=== PATIENT | male | born 1950 | race Caucasian/White ===

== ENCOUNTER 2018-10-30 12:26 | Inpatient (IN) | payer OTHER ==
--- NOTE | 2018-10-30 13:20 | RAD REPORT ---
EXAM DESCRIPTION: CT - CTHCSPWOC - 10/30/2018 1:09 pm CLINICAL HISTORY: Trauma, head and neck injury. WEAKNESS COMPARISON: No comparisons TECHNIQUE: Axial 5 mm thick images of the head were obtained. Axial 2 mm thick images of the cervical spine were obtained with sagittal and coronal reconstruction images generated and reviewed. All CT scans are performed using dose optimization technique as appropriate and may include automated exposure control or mA/KV adjustment according to patient size. FINDINGS: CT HEAD WITHOUT CONTRAST: No acute hemorrhage, hydrocephalus or extra-axial collection is identified.Advanced generalized brain atrophy is present with moderate periventricular and deep white matter chronic microvascular ischemi c changes.No areas of brain edema or midline shift. The paranasal sinuses and mastoids are clear.The calvarium is intact. CT CERVICAL SPINE WITHOUT CONTRAST: No fracture or subluxation.Disc thinning with posterior osteophyte formation is seen lower cervical l evels.No prevertebral soft tissues swelling is identified. IMPRESSION: No acute intracranial or cervical spine findings. Moderate lower cervical spondylosis.
[2018-10-30 14:15] LABS: Urine Blood 3+ (NEG); Urine Glucose NEGATIVE (NEG); Urine Protein 2+ (NEG); Urine Specific Gravity 1.025 (1.005-1.030)
[2018-10-30 14:25] LABS: Urine RBC 20-50 /HPF (NONE SEEN)
[2018-10-30 14:26] LABS: Urine Bacteria >50 /HPF (NONE SEEN); Urine Culture Reflex Order NOT NEEDED
--- NOTE | 2018-10-30 14:28 | RAD REPORT ---
EXAM DESCRIPTION: RAD - Chest Single View - 10/30/2018 2:22 pm CLINICAL HISTORY: AMS Chest pain. COMPARISON: No comparisons FINDINGS: Portable technique limits examination quality. The lungs are grossly clear. The heart is normal in size. No displaced fractures. IMPRESSION: No acute intrathoracic process suspected.
[2018-10-30 14:39] LABS: Absolute Lymphocytes (CBC) 2.1 K/uL (0.7-4.9); Absolute Monocytes 1.3 K/uL (0.1-1.3); Absolute Neutrophil 13.8 K/uL (1.8-8.0); Basophils % 0.1 % (0-1.3); Hematocrit 37.9 % (39.6-49.0); Lymphocytes % 12.3 % (15.3-44.8); MPV 9.8 fL (7.6-11.3); Monocytes % 7.4 % (3.3-12.3); RBC Red Blood Cell Count 4.14 M/uL (4.33-5.43)
[2018-10-30] MEDS ORDERED: NA CHLORIDE 0.9% 1,000 ML ONE ×2 (14:42→15:30)
[2018-10-30 14:48] LABS: Potassium 3.4 mmol/L (3.5-5.1)
--- NOTE | 2018-10-30 15:15 | ER ---
Nurse's Notes [facility] Name: José Manuel Vega Age: 67 yrs Sex: Male : 1950 Arrival Date: 10/30/2018 Time: 12:31 Bed 25 Private MD: Diagnosis: Acute kidney failure;Dehydration;Urinary tract infection, site not specified Presentation: 10/30 12:34 Presenting complaint: Pt's sister states "he's been having frequent falls and has to aa5 hold on to something when walking for the last 2 months". Pt's sister also states "he has to walk bending over and I don't know why". Transition of care: patient was not received from another setting of care. Onset of symptoms was 2018. Risk Assessment: Do you want to hurt yourself or someone else? Unable to obtain. Care prior to arrival: None. 12:34 Method Of Arrival: Wheelchair aa5 12:34 Acuity: GABY 3 aa5 14:45 Initial Sepsis Screen: Does the patient meet any 2 criteria? Systolic BP < 90 mmHg. ca1 Altered Mental Status. Does the patient have a suspected source of infection? Yes: Dysuria/Frequency/Urgency/UTI. Historical: - Allergies: 12:38 No Known Allergies; aa5 - Home Meds: 12:38 Flomax Oral [Active]; Zoloft Oral [Active]; Metformin Oral [Active]; aa5 - PMHx: 12:38 Hypertension; Hyperlipidemia; Diabetes - NIDDM; Alzheimers; aa5 - PSHx: 12:38 arm sx; aa5 - Immunization history:: Flu vaccine is up to date. - Social history:: Smoking status: Patient/guardian denies using tobacco. - Ebola Screening: : No symptoms or risks identified at this time. Screenin:00 Abuse screen: Denies threats or abuse. Denies injuries from another. Nutritional ca1 screening: No deficits noted. Tuberculosis screening: No symptoms or risk factors identified. Fall Risk Fall in past 12 months (25 points). Secondary diagnosis (15 points) dementia, IV access (20 points). Gait- Weak (10 pts.). Assessment: 13:00 General: Appears in no apparent distress. comfortable, Behavior is calm, cooperative. ca1 General: Reports sister reports weakness for 2 days. Used to ambulate and move around house without assistance. In the past 2 days, pt appeared weak and needed assistance to move around. Pain: Denies pain. 13:00 Neuro: Level of Consciousness is awake, alert, obeys commands, Oriented to person, Pt ca1 has dementia and MRGary . Associate Account Executive are equal bilaterally Moves all extremities. Gait is unsteady, Speech is normal, Facial symmetry appears normal, Pupils are PERRLA, Sister reports changes in mental status from baseline. . 13:00 Cardiovascular: Heart tones S1 S2 present Capillary refill < 3 seconds Patient's skin ca1 is warm and dry. Respiratory: Airway is patent Respiratory effort is even, unlabored, Respiratory pattern is regular, symmetrical, Breath sounds are clear bilaterally. GI: Abdomen is flat, non-distended, Bowel sounds present X 4 quads. Abd is soft and non tender X 4 quads. : Parent/caregiver report the patient having foul smelling urine. EENT: No deficits noted. No signs and/or symptoms were reported regarding the EENT system. EENT:. Derm: Skin is intact, Skin is pink, warm \\T\\ dry. Musculoskeletal: Circulation, motion, and sensation intact. Capillary refill < 3 seconds. 13:30 Reassessment: PILI Fraser VO change Donnelly to Straight Cath. ca1 14:00 Reassessment: Patient appears in no apparent distress at this time. Patient and/or ca1 family updated on plan of care and expected duration. Pain level reassessed. Patient is alert, oriented x 3, equal unlabored respirations, skin warm/dry/pink. family at bedside. 15:00 Reassessment: Patient appears in no apparent distress at this time. Patient and/or ca1 family updated on plan of care and expected duration. Pain level reassessed. Patient is alert, oriented x 3, equal unlabored respirations, skin warm/dry/pink. Pending room assignment. 15:20 Reassessment: Patient appears in no apparent distress at this time. Patient is alert, ca1 oriented x 3, equal unlabored respirations, skin warm/dry/pink. Pt eating sandwich and juice with assistance by sister. Sister reports he needs assistance to finish meal, "minds tend to wander" and not finish his food. 15:40 Reassessment: Instructed pt and family on NPO status. ca1 16:29 Reassessment: Patient appears in no apparent distress at this time. Patient is alert, ca1 oriented x 3, equal unlabored respirations, skin warm/dry/pink. Called for report. Instructed to call back in 15 minutes. 16:47 Reassessment: Patient appears in no apparent distress at this time. Patient is alert, ca1 oriented x 3, equal unlabored respirations, skin warm/dry/pink. Vital Signs: 12:38 BP 102 / 62; Pulse 113; Resp 16 S; Temp 98.6(TE); Pulse Ox 96% on R/A; aa5 13:00 BP 104 / 60; Pulse 77; Resp 19; Pulse Ox 98% on R/A; ca1 13:30 BP 117 / 86; Pulse 98; Resp 18; Pulse Ox 97% on R/A; ca1 14:00 BP 105 / 79; Pulse 92; Resp 18; Pulse Ox 99% on R/A; ca1 14:30 BP 89 / 57; Pulse 87; Resp 18; Pulse Ox 99% on R/A; ca1 15:17 BP 113 / 98; Pulse 82; Resp 19; Pulse Ox 97% on R/A; ca1 15:30 BP 122 / 66; Pulse 64; Resp 19; Pulse Ox 100% on R/A; ca1 15:50 BP 115 / 89; Pulse 90; Resp 19; Pulse Ox 98% on R/A; ca1 16:30 BP 128 / 66; Pulse 66; Resp 19; Pulse Ox 98% on R/A; ca1 16:47 BP 114 / 62; Pulse 99; Resp 19; Temp 98.4; Pulse Ox 99% on R/A; ca1 ED Course: 12:31 Patient arrived in ED. aa5 12:34 Arm band placed on. aa5 12:36 Triage completed. aa5 12:50 Patient placed in an exam room, on a stretcher. aa5 12:52 Shea Stephens, RN is Primary Nurse. ca1 13:00 Patient has correct armband on for positive identification. Placed in gown. Bed in low ca1 position. Call light in reach. Side rails up X2. Pulse ox on. NIBP on. Warm blanket given. 13:04 Evelio Cartagena PA is PHCP. jr8 13:04 Ham Pérez MD is Attending Physician. jr8 13:10 CT Head C Spine In Process Unspecified. EDMS 13:57 Straight cath inserted, using sterile technique, 16 Fr. Returned mike urine. Patient mw1 tolerated well. 13:58 EKG done, by oracle technical architect. reviewed by Evelio ALEJANDRE. 3 13:59 Urine Dipstick--Ancillary (enter results) Sent. mw1 14:20 Inserted saline lock: 22 gauge in left antecubital area, using aseptic technique. Blood ca1 collected. 14:23 XRAY Chest (1 view) In Process Unspecified. EDMS 15:14 Daniela Hathaway MD is Hospitalizing Provider. jr8 16:53 No provider procedures requiring assistance completed. Patient admitted, IV remains in ca1 place. Administered Medications: 14:34 Drug: NS 0.9% 1000 ml Route: IV; Rate: 1 bolus; Site: left antecubital; ca1 15:25 Follow up: Response: No adverse reaction; IV Status: Completed infusion ca1 15:00 Drug: Rocephin - (cefTRIAXone) 1 grams Route: IVPB; Infused Over: 30 mins; Site: left ca1 antecubital; 15:48 Follow up: IV Status: IVP per pharmacy protocol ca1 15:49 Follow up: Response: No adverse reaction ca1 15:16 Drug: NS 0.9% 1000 ml Route: IV; Rate: 100 ml/hr; Site: left antecubital; ca1 15:49 Follow up: IV Status: Infusion continued upon admission ca1 Point of Care Testing: Blood Glucose: 13:29 Blood Glucose: 125 mg/dL; ca1 Ranges: Outcome: 15:14 Decision to Hospitalize by Provider. jr8 16:53 Admitted to Tele accompanied by tech, family with patient, via wheelchair, room 403, ca1 with chart, Report called to Bobby Jackson RN 16:54 Condition: stable ca1 17:08 Patient left the ED. ca1 Signatures: Dispatcher [employer] EDMS Nhi Zhou RN RN aa5 Evleio Cartagena PA PA jr8 Iglesia Toussaint mw1 Nevin Andersen 3 Shea Stephens RN RN ca1 Corrections: (The following items were deleted from the chart) 12:45 12:34 Initial Sepsis Screen: Does the patient meet any 2 criteria? No. Patient's aa5 initial sepsis screen is negative. Does the patient have a suspected source of infection? No. Patient's initial sepsis screen is negative. aa5 12:48 12:38 BP 90 / 63; Pulse 113bpm; Resp 16bpm; Spontaneous; Pulse Ox 96% RA; Temp 98.6F aa5 Temporal; aa5 15:41 13:00 General: Reports sister reports weakness for 2 days. Used to ambulate and move ca1 around house without assistance. ca1 15:47 13:00 Neuro: Level of Consciousness is awake, alert, obeys commands, Oriented to ca1 person, Pt has dementia and MR. . Associate Account Executive are equal bilaterally Moves all extremities. Gait is unsteady, Speech is normal, Facial symmetry appears normal, Pupils are PERRLA, ca1 15:50 15:26 Reassessment: PILI Fraser VO change Donnelly to Straight Cath. ca1 ca1 16:30 15:50 Reassessment: Patient appears in no apparent distress at this time. Patient is ca1 alert, oriented x 3, equal unlabored respirations, skin warm/dry/pink. Pt eating sandwich and juice with assistance by sister. Sister reports he needs assistance to finish meal, "minds tend to wander" and not finish his food ca1 18:57 12:50 Nhi Zhou, RN is Primary Nurse. aa5 aa5 18:57 12:52 Primary Nurse role handed off by Nhi Zhou, RN ca1 aa5
--- NOTE | 2018-10-30 15:15 | EDPHYS ---
Physician Documentation [facility] Name: José Manuel Vega Age: 67 yrs Sex: Male : 1950 Arrival Date: 10/30/2018 Time: 12:31 Bed 25 Private MD: ED Physician Ham Pérez HPI: 10/30 15:09 This 67 yrs old Male presents to ER via Wheelchair with complaints of General jr8 Weakness. 15:09 Significant other brought patient in today for unsteady gait. Stated that he is more jr8 weak then normal and feels that he is not acting himself. Baseline history of Alzheimer's and MR. . Severity of symptoms: At their worst the symptoms were moderate in the emergency department the symptoms are unchanged. It is unknown whether or not the patient has had similar symptoms in the past. The patient has not recently seen a physician. Historical: - Allergies: 12:38 No Known Allergies; aa5 - Home Meds: 12:38 Flomax Oral [Active]; Zoloft Oral [Active]; Metformin Oral [Active]; aa5 - PMHx: 12:38 Hypertension; Hyperlipidemia; Diabetes - NIDDM; Alzheimers; aa5 - PSHx: 12:38 arm sx; aa5 - Immunization history:: Flu vaccine is up to date. - Social history:: Smoking status: Patient/guardian denies using tobacco. - Ebola Screening: : No symptoms or risks identified at this time. ROS: 15:09 Unable to obtain ROS due to baseline dementia. jr8 Exam: 15:09 Eyes: Pupils equal round and reactive to light, extra-ocular motions intact. Lids and jr8 lashes normal. Conjunctiva and sclera are non-icteric and not injected. Cornea within normal limits. Periorbital areas with no swelling, redness, or edema. ENT: Nares patent. No nasal discharge, no septal abnormalities noted. Tympanic membranes are normal and external auditory canals are clear. Oropharynx with no redness, swelling, or masses, exudates, or evidence of obstruction, uvula midline. Mucous membranes moist. Neck: Trachea midline, no thyromegaly or masses palpated, and no cervical lymphadenopathy. Supple, full range of motion without nuchal rigidity, or vertebral point tenderness. No Meningismus. Cardiovascular: Regular rate and rhythm with a normal S1 and S2. No gallops, murmurs, or rubs. Normal PMI, no JVD. No pulse deficits. Respiratory: Lungs have equal breath sounds bilaterally, clear to auscultation and percussion. No rales, rhonchi or wheezes noted. No increased work of breathing, no retractions or nasal flaring. Abdomen/GI: Soft, non-tender, with normal bowel sounds. No distension or tympany. No guarding or rebound. No evidence of tenderness throughout. Back: No spinal tenderness. No costovertebral tenderness. Full range of motion. Skin: Warm, dry with normal turgor. Normal color with no rashes, no lesions, and no evidence of cellulitis. MS/ Extremity: Pulses equal, no cyanosis. Neurovascular intact. Full, normal range of motion. 15:09 Neuro: Orientation: to person, Mentation: inappropriate for stated age, slow to respond, confused, Memory: immediate memory is intact, remote memory is impaired, recent memory is impaired, Cranial nerves: CN I not tested, CN II- XII are normal as tested, extraocular movements are intact, Facial palsy and sensory deficits are absent. Speech is slowed, Tongue strength is normal, Cerebellar function: unable to test, Motor: moves all fours, Sensation: no obvious gross deficits, seizure activity, is not displayed by the patient, Abnormal movements: there are no abnormal movements. 15:58 ECG was reviewed by the Attending Physician. jr8 Vital Signs: 12:38 BP 102 / 62; Pulse 113; Resp 16 S; Temp 98.6(TE); Pulse Ox 96% on R/A; aa5 13:00 BP 104 / 60; Pulse 77; Resp 19; Pulse Ox 98% on R/A; ca1 13:30 BP 117 / 86; Pulse 98; Resp 18; Pulse Ox 97% on R/A; ca1 14:00 BP 105 / 79; Pulse 92; Resp 18; Pulse Ox 99% on R/A; ca1 14:30 BP 89 / 57; Pulse 87; Resp 18; Pulse Ox 99% on R/A; ca1 15:17 BP 113 / 98; Pulse 82; Resp 19; Pulse Ox 97% on R/A; ca1 15:30 BP 122 / 66; Pulse 64; Resp 19; Pulse Ox 100% on R/A; ca1 15:50 BP 115 / 89; Pulse 90; Resp 19; Pulse Ox 98% on R/A; ca1 16:30 BP 128 / 66; Pulse 66; Resp 19; Pulse Ox 98% on R/A; ca1 16:47 BP 114 / 62; Pulse 99; Resp 19; Temp 98.4; Pulse Ox 99% on R/A; ca1 MDM: 13:04 Patient medically screened. jr 15:09 Data reviewed: vital signs, nurses notes, lab test result(s), EKG, radiologic studies, jr CT scan, plain films, and as a result, I will admit patient. Data interpreted: Pulse oximetry: on room air is 99 %. Interpretation: normal. Counseling: I had a detailed discussion with the patient and/or guardian regarding: the historical points, exam findings, and any diagnostic results supporting the discharge/admit diagnosis, lab results, radiology results, the need for further work-up and treatment in the hospital. 15:14 Physician consultation: Daniela Hathaway MD was called at 15:14, was contacted at 15:14, jr8 regarding admission, to the telemetry unit. consult, patient's condition, and will see patient. 10/30 12:52 Order name: Urine Culture aa5 10/30 12:52 Order name: Urine Microscopic Only; Complete Time: 14:55 aa5 10/30 13:28 Order name: Glucose, Ancillary Testing; Complete Time: 13:36 EDMS 10/30 13:36 Order name: CBC with Diff; Complete Time: 15:12 jr8 10/30 13:36 Order name: Basic Metabolic Panel; Complete Time: 14:55 jr8 10/30 13:56 Order name: Urine Dipstick--Ancillary (enter results); Complete Time: 14:20 bd 10/30 15:41 Order name: CBC with Automated Diff EDMS 10/30 15:41 Order name: CBC with Automated Diff EDMS 10/30 15:41 Order name: CBC with Automated Diff EDMS 10/30 15:41 Order name: CBC with Automated Diff EDMS 10/30 15:41 Order name: Comprehensive Metabolic Panel EDMS 10/30 15:41 Order name: Comprehensive Metabolic Panel EDMS 10/30 15:41 Order name: Comprehensive Metabolic Panel EDMS 10/30 15:41 Order name: Comprehensive Metabolic Panel EDMS 10/30 12:52 Order name: CT Head C Spine; Complete Time: 13:36 aa5 10/30 12:52 Order name: Urine Dipstick-Ancillary (obtain specimen); Complete Time: 13:59 aa5 10/30 12:52 Order name: Donnelly; Complete Time: 13:59 aa5 10/30 12:53 Order name: FSBS; Complete Time: 13:59 aa5 10/30 13:36 Order name: EKG - Nurse/Tech; Complete Time: 13:59 jr8 10/30 13:36 Order name: EKG; Complete Time: 13:37 jr8 10/30 13:37 Order name: XRAY Chest (1 view); Complete Time: 14:55 jr8 10/30 15:41 Order name: NPO EDMS 10/30 15:41 Order name: Magnesium EDMS 10/30 15:41 Order name: Magnesium EDMS 10/30 15:41 Order name: Phosphorus EDMS 10/30 15:41 Order name: Phosphorus EDMS 10/30 15:41 Order name: Patient Safety Orders EDMS 10/30 15:26 Order name: Straight Cath; Complete Time: 15:26 ca1 EC:58 Rate is 92 beats/min. Rhythm is irregular, Sinus arrythmia. QRS [place] is Normal. VA jr8 interval is normal at 124 msec. QRS interval is normal at 86 msec. QT interval is normal at 435 msec. No Q waves. T waves are Normal. No ST changes noted. Clinical impression: Sinus arrythmia. Interpreted by me. Reviewed by me. Administered Medications: 14:34 Drug: NS 0.9% 1000 ml Route: IV; Rate: 1 bolus; Site: left antecubital; ca1 15:25 Follow up: Response: No adverse reaction; IV Status: Completed infusion ca1 15:00 Drug: Rocephin - (cefTRIAXone) 1 grams Route: IVPB; Infused Over: 30 mins; Site: left ca1 antecubital; 15:48 Follow up: IV Status: IVP per pharmacy protocol ca1 15:49 Follow up: Response: No adverse reaction ca1 15:16 Drug: NS 0.9% 1000 ml Route: IV; Rate: 100 ml/hr; Site: left antecubital; ca1 15:49 Follow up: IV Status: Infusion continued upon admission ca1 Point of Care Testing: Blood Glucose: 13:29 Blood Glucose: 125 mg/dL; ca1 Ranges: Critical Glucose Levels:Adult <50 mg/dl or >400 mg/dl <40 mg/dl or >180 mg/dl Disposition: 17:20 Co-signature as Attending Physician, Ham Pérez MD. rn Disposition: 10/30/18 15:14 Hospitalization ordered by Daniela Hathaway for Inpatient Admission. Preliminary diagnosis are Acute kidney failure, Dehydration, Urinary tract infection, site not specified. - Bed requested for Telemetry/MedSurg (Inpatient). - Status is Inpatient Admission. ca1 - Condition is Stable. - Problem is new. - Symptoms have improved. UTI on Admission? Yes Signatures: Dispatcher [employer] EDMS Zaynab Peña Ham Rodriguez MD MD rn Abelardo, Nhi RN RN aa5 Evelio Cartagena PA PA jr8 Shea Stephens RN RN ca1 Corrections: (The following items were deleted from the chart) 16:10 15:09 Neuro: Orientation: to person, Mentation: inappropriate for stated age, slow to jr8 respond, confused, Memory: immediate memory is intact, remote memory is impaired, recent memory is impaired, Cranial nerves: CN I not tested, CN II- XII are normal as tested, extraocular movements are intact, Facial palsy and sensory deficits are absent. Speech is slowed, Tongue strength is normal, Cerebellar function: unable to test, Motor: moves all fours, Sensation: no obvious gross deficits, seizure activity, is not displayed by the patient, Abnormal movements: there are no abnormal movements, jr8 16:13 15:14 Hospitalization Ordered by Daniela Hathaway MD for Inpatient Admission. Preliminary bd diagnosis is Acute kidney failure; Dehydration; Urinary tract infection, site not specified. Bed requested for Telemetry/MedSurg (Inpatient). Status is Inpatient Admission. Condition is Stable. Problem is new. Symptoms have improved. UTI on Admission? Yes. jr8 17:08 16:13 10/30/2018 15:14 Hospitalization Ordered by Daniela Hathaway MD for Inpatient ca1 Admission. Preliminary diagnosis is Acute kidney failure; Dehydration; Urinary tract infection, site not specified. Bed requested for Telemetry/MedSurg (Inpatient). Status is Inpatient Admission. Condition is Stable. Problem is new. Symptoms have improved. UTI on Admission? Yes. bd
[2018-10-30] MEDS ORDERED: CEFTRIAXONE/SWI 1gm 1 GM/10 ML SYR ONE (15:30)
[2018-10-30] MEDS ORDERED: ONDANSETRON 4 MG/2 ML VIAL IV PRN (15:34)
[2018-10-30] MEDS ORDERED: ACETAMINOPHEN 500 MG TAB PO PRN (15:34)
[2018-10-30] MEDS ORDERED: D50W 25 GM/50 ML SYRINGE IV PRN (15:48)
[2018-10-30] MEDS ORDERED: GLUCAGON 1 MG/VIAL IM PRN (15:48)
[2018-10-30] MEDS ORDERED: NA CHLORIDE 0.9% 1,000 ML IV SCH (16:00)
[2018-10-30] MEDS: INSULIN -REGULAR HUMAN 50 UNIT/0.5 ML ML SQ SCH ×2 (16:30→21:00)
[2018-10-30 18:10] VITALS: BMI 22.1
[2018-10-30] MEDS ORDERED: POTASSIUM CL SA 10 MEQ TAB PO ONE (22:46)
[2018-10-31] MEDS: NACHLORIDE 0.45% 1,000 ML IV SCH ×3 (00:39→20:15)
[2018-10-31 04:04] LABS: Absolute Lymphocytes (CBC) 1.6 K/uL (0.7-4.9); Absolute Monocytes 0.9 K/uL (0.1-1.3); Absolute Neutrophil 9.6 K/uL (1.8-8.0); Basophils % 0.2 % (0-1.3); Eosinophils % 0.4 % (0-4.4); Hematocrit 35.5 % (39.6-49.0); Lymphocytes % 13.3 % (15.3-44.8); MPV 9.8 fL (7.6-11.3); Monocytes % 7.3 % (3.3-12.3); RBC Red Blood Cell Count 3.92 M/uL (4.33-5.43)
[2018-10-31 04:20] LABS: Albumin 2.7 g/dL (3.4-5.0); Bilirubin Total 0.8 mg/dL (0.2-1.0); Magnesium 1.8 mg/dL (1.8-2.4); Phosphorus 2.4 mg/dL (2.5-4.9); Potassium 3.6 mmol/L (3.5-5.1); Protein, Total 6.9 g/dL (6.4-8.2); Uric Acid 6.6 mg/dL (3.5-7.2)
--- NOTE | 2018-10-31 05:43 | P.HP ---
Certification for Inpatient Patient admitted to: Inpatient With expected LOS: >2 Midnights Practitioner: I am a practitioner with admitting privileges, knowledge of patient current condition, hospital course, and medical plan of care. Services: Services provided to patient in accordance with Admission requirements found in Title 42 Section 412.3 of the Code of Federal Regulations Patient History Date of Service: 10/30/18 Reason for admission: acute encephalopathy, sepsis, UTI History of Present Illness: Mr Vega is a 67 years old male with history of HTN, DM II, Dementia, diabetes mellitus, who become more confused and lethargic. His symptoms started yesterday. No history of fever or chills. No cough or SOB. The patient is poor historian. According to his sister, he is going down hill since a couple of months. At arrival he was afebrile, hypotensive, and tachycardic. Lab work remarkable for leukocytosis, worsening renal function, UA abnormal consistent with UTI. CT head shows no acute abnormalities. Allergies morphine Allergy (Verified 01/29/13 16:45) Rash Home medications list reviewed: Yes Home Medications: Losartan/Hydrochlorothiazide [Losartan-Hctz 100-12.5 mg Tab] 1 each PO DAILY Metformin HCl 500 mg PO DAILY AT SUPPER 12/12/12 Sertraline [Zoloft*] 50 mg PO DAILY 12/12/12 Simvastatin [Zocor*] 20 mg PO BEDTIME 12/12/12 Aspirin 1 tab PO DAILY 10/30/18 Levothyroxine [Synthroid] 50 mcg PO [id number] 10/30/18 Tamsulosin [Flomax*] 1 tab PO BEDTIME 10/30/18 - Past Medical/Surgical History Diabetic: Yes -: Dementia -: mental retardation -: hypertension -: hyperlipidemia -: NIDDM -: Alzheimers -: arm sx - Family History Family History: Reviewed- Non-Contributory - Social History Smoking Status: Never smoker Alcohol use: No CD- Drugs: No Caffeine use: No Place of Residence: Home Review of Systems 10-point ROS is otherwise unremarkable Physical Examination - Vital Signs Temperature: 98.0 F Blood Pressure: 113/56 Pulse: 67 Respirations: 19 Pulse Ox (%): 97 - Physical Exam General: Alert, In no apparent distress, Demented, Confused HEENT: Atraumatic, PERRLA, Mucous membr. moist/pink, EOMI, Sclerae nonicteric Neck: Supple, 2+ carotid pulse no bruit, No LAD, Without JVD or thyroid abnormality Respiratory: Clear to auscultation bilaterally, Normal air movement Cardiovascular: Regular rate/rhythm, Normal S1 S2 Gastrointestinal: Normal bowel sounds, No tenderness Musculoskeletal: No tenderness Integumentary: No rashes Neurological: Normal speech, Normal strength at 5/5 x4 extr, Normal tone, Normal affect Lymphatics: No axilla or inguinal lymphadenopathy - Studies Laboratory Data (last 24 hrs) 10/30/18 14:24: Sodium 146 H, Potassium 3.4 L, BUN 43 H, Creatinine 2.50 H, Glucose 118 H 10/30/18 14:24: WBC 17.2 H, Hgb 12.9 L, Hct 37.9 L, Plt Count 263 Assessment and Plan - Problems (Diagnosis) (1) Acute encephalopathy Current Visit: Yes Status: Acute (2) Sepsis associated hypotension Current Visit: Yes Status: Acute (3) UTI (urinary tract infection) Current Visit: Yes Status: Acute Qualifiers: Urinary tract infection type: acute cystitis Hematuria presence: without hematuria Qualified Code(s): N30.00 - Acute cystitis without hematuria (4) Diabetes mellitus Current Visit: Yes Status: Acute Qualifiers: Diabetes mellitus type: type 2 Diabetes mellitus watermelon harvesting supervisor insulin use: without snf use Diabetes mellitus complication status: with unspecified complications Qualified Code(s): E11.8 - Type 2 diabetes mellitus with unspecified complications (5) Dementia Current Visit: Yes Status: Acute Qualifiers: Dementia type: unspecified type Dementia behavioral disturbance: with behavioral disturbance Qualified Code(s): F03.91 - Unspecified dementia with behavioral disturbance - Plan will admit the patient due to acute encephalopathy in context of sepsis secondary to UTI. Continue empiric abx treatment, follow up cultures. - Advance Directives Does patient have a Living Will: No Does patient have a Durable POA for Healthcare: Yes - Code Status/Comfort Care Code Status Assessed: Yes Code Status: Full Code
[2018-10-31 06:00] LABS: Urine Appearance CLOUDY; Urine Blood 3+ (NEG); Urine Color DK YELLOW; Urine Glucose NEGATIVE (NEG); Urine Protein 1+ (NEG)
[2018-10-31 06:12] LABS: Urine Bilirubin NEGATIVE (NEG)
[2018-10-31 06:15] LABS: Urine Bacteria <20 /HPF (NONE SEEN); Urine Culture Reflex Order NOT NEEDED; Urine RBC 20-50 /HPF (NONE SEEN)
[2018-10-31 06:21] LABS: UR MICROALBUMIN 8.4 mg/dL (< 1.9)
[2018-10-31] MEDS: INSULIN -REGULAR HUMAN 50 UNIT/0.5 ML ML SQ SCH ×4 (07:30→20:22)
[2018-10-31] MEDS: CEFTRIAXONE/SWI 1gm 1 GM/10 ML SYR IVP SCH (08:43)
--- NOTE | 2018-10-31 18:36 | RAD REPORT ---
EXAM DESCRIPTION: US - Renal Ultrasound-Complete - 10/31/2018 6:09 pm CLINICAL HISTORY: JASON/ CKD. Flank pain, renal failure COMPARISON: Urinary Bladder dated 10/31/2018 FINDINGS: Bilateral renal sonography was performed with urinary bladder ultrasound with PVR measurem ent. Both kidneys are normal in size, shape and echotexture. The right kidney measures 10.1 x 5.4 x 5.0 cm. No hydronephrosis, focal mass or perinephric fluid. The left kidney measures 9.3 x 5.2 x 4.0 cm. No hydronephrosis, focal mass or perinephric fluid. No urinary bladder mass or ureterocele present. Postvoid bladder volume is 55 mL. IMPRESSION: Unremarkable renal sonogram. Mild postvoid bladder residual 55 mL.
--- NOTE | 2018-10-31 20:05 | PN ---
Date of Progress Note: 10/31/2018 Subjective: The patient was seen and examined, chart reviewed and case discussed with RN. The patient does have mild MR. Answers questions appropriately. Medications: List reviewed. Physical Examination: Vital Signs: Temperature 98.2, heart rate 57, blood pressure 111/61, respirations 16, O2 sat 98% on room air. General: Awake, alert, oriented, in no acute distress. Elderly male. CV: S1 and S2. Regular rate and rhythm. Peripheral pulses present. Respiratory: Moving air well bilaterally. No wheezing or stridor. Gastrointestinal: Abdomen is soft, nontender, nondistended. Positive bowel sounds. No guarding or rigidity. Extremities: No clubbing, cyanosis, or edema. Neurologic: Nonfocal. Skin: Normal skin turgor, no rashes. Code Status: Full. Laboratory Data: Sodium 147, potassium 3.6, chloride 112, CO2 28, BUN 36, creatinine 1.23, glucose 125, uric acid 6.6, calcium 8.6, phosphorus 2.4, albumin 2.7. WBC 12.2, H and H 12.2 and 35.5, platelets 250, neutrophils 78.8% . Urine culture growing out 4+ gram-negative rods. ID and sensitivity pending. Head CT scan shows no acute intracranial or cervical spine findings. Moderate lower cervical spondylosis. Chest x-ray, personally reviewed, shows no acute intrathoracic process identified. Assessment And Plan: A 67-year-old male with; 1. Acute toxic encephalopathy, resolved. 2. Sepsis associated hypotension, improving. Blood pressure is now in the 110s. The patient was given IV fluid resuscitation. 3. Acute cystitis without hematuria secondary to gram-negative rods. ID and sensitivity pending. We will continue with IV antibiotics. The patient's white count is trending down. Currently, afebrile. He seems to be responding well. 4. Diabetes mellitus type 2 without long-term use of insulin with hyperglycemia. We will continue sliding scale insulin and Accu-Cheks. 5. Mild mental retardation 6. 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 7. Gastrointestinal and deep venous thrombosis prophylaxis addressed. We will place on Lovenox. 8. Acute kidney injury resolved creatinine has normalized, likely secondary to sepsis and hypotension. 9. Hypokalemia replaced. 10. Hypophosphatemia. We will replace and monitor. Plan: Follow up on urine culture, ID and sensitivity, continue antibiotics. Likely discharge in the next 24-48 hours. /ANTOINETTE Voice ID: [id number] Report ID: [id number] MTDD
[2018-10-31] MEDS ORDERED: TAMSULOSIN 0.4 MG SR CAP PO SCH ×2 (21:00)
[2018-10-31] MEDS ORDERED: ATORVASTATIN 10 MG TAB PO SCH (21:00)
[2018-10-31 21:17] VITALS: O2SAT 98
--- NOTE | 2018-10-31 23:49 | P.CNS ---
Date of Consult: 10/30/18 Reason for Consult: JASON Requesting Physician: Daniela Hathaway Chief Complaint: acute encephalopathy, sepsis, UTI History of Present Illness: Mr Vega is a 67 years old male with history of HTN, DM II, Dementia, diabetes mellitus, who become more confused and lethargic. His symptoms started yesterday. No history of fever or chills. No cough or SOB. The patient is poor historian. According to his sister, he is going down hill since a couple of months. At arrival he was afebrile, hypotensive, and tachycardic. Lab work remarkable for leukocytosis, worsening renal function, UA abnormal consistent with UTI. CT head shows no acute abnormalities. 15:09 This 67 yrs old Male presents to ER via Wheelchair with complaints of General jr8 Weakness. 15:09 Significant other brought patient in today for unsteady gait. Stated that he is more jr8 weak then normal and feels that he is not acting himself. Baseline history of Alzheimer's and MR. . Severity of symptoms: At their worst the symptoms were moderate in the emergency department the symptoms are unchanged. It is unknown whether or not the patient has had similar symptoms in the past. The patient has not recently seen a physician. Allergies morphine Allergy (Verified 01/29/13 16:45) Rash Home medications list reviewed: Yes Home Medications: Losartan/Hydrochlorothiazide [Losartan-Hctz 100-12.5 mg Tab] 1 each PO DAILY Metformin HCl 500 mg PO DAILY AT SUPPER 12/12/12 Sertraline [Zoloft*] 50 mg PO DAILY 12/12/12 Simvastatin [Zocor*] 20 mg PO BEDTIME 12/12/12 Aspirin 1 tab PO DAILY 10/30/18 Levothyroxine [Synthroid*] 50 mcg PO [id number] 10/30/18 Tamsulosin [Flomax*] 1 tab PO BEDTIME 10/30/18 Cefuroxime Axetil [Cefuroxime] 500 mg PO BID #10 tab 11/01/18 Potassium Chloride 20 meq PO DAILY #3 tablet.er 11/01/18 - Past Medical/Surgical History Diabetic: Yes -: Dementia -: mental retardation -: hypertension -: hyperlipidemia -: NIDDM -: Alzheimers -: arm sx - Social History Smoking Status: Never smoker Alcohol use: No CD- Drugs: No Caffeine use: No Place of Residence: Home Review of Systems 10-point ROS is otherwise unremarkable General: Weakness, Malaise Neurological: Weakness Physical Examination Temp Pulse Resp BP Pulse Ox 98.0 F 57 20 108/47 L 98 10/31/18 20:00 10/31/18 20:00 10/31/18 20:00 10/31/18 20:00 10/31/18 20:00 General: In no apparent distress, Cooperative HEENT: Atraumatic, Normocephalic Neck: Supple Respiratory: Clear to auscultation bilaterally, Normal air movement Cardiovascular: No edema, Regular rate/rhythm Gastrointestinal: Hypoactive, Soft and benign, Non-distended Musculoskeletal: No clubbing, No contractures Integumentary: No rashes, No cyanosis Neurological: Abnormal affect Imagings Data: EXAM DESCRIPTION: US - Renal Ultrasound-Complete - 10/31/2018 6:09 pm CLINICAL HISTORY: JASON/ CKD. Flank pain, renal failure COMPARISON: Urinary Bladder dated 10/31/2018 FINDINGS: Bilateral renal sonography was performed with urinary bladder ultrasound with PVR measurement. Both kidneys are normal in size, shape and echotexture. The right kidney measures 10.1 x 5.4 x 5.0 cm. No hydronephrosis, focal mass or perinephric fluid. The left kidney measures 9.3 x 5.2 x 4.0 cm. No hydronephrosis, focal mass or perinephric fluid. No urinary bladder mass or ureterocele present. Postvoid bladder volume is 55 mL. IMPRESSION: Unremarkable renal sonogram. Mild postvoid bladder residual 55 mL. EXAM DESCRIPTION: RAD - Chest Single View - 10/30/2018 2:22 pm CLINICAL HISTORY: AMS Chest pain. COMPARISON: No comparisons FINDINGS: Portable technique limits examination quality. The lungs are grossly clear. The heart is normal in size. No displaced fractures. IMPRESSION: No acute intrathoracic process suspected. Conclusions/Impression: A/ JASON like due to hypovolemia. Dehydration. Hypernatremia. Hypokalemia. CKD III with proteinuria. DM II with CKD. HTN with CKD. Anemia in chronic illness. BPH with LUTS. Sepsis. Acute proteus cystitis. P/ Continue current POC and Medications. Agree with aggressive IVF. Replete lytes as ordered. Empiric abx for sepsis/ cystitis. Renal and Bladder US ordered. Restart home medications as indicated. No NSAIDS. AM labs. Daily weight. Thank you kindly for the consultation.
[2018-11-01] MEDS: NACHLORIDE 0.45% 1,000 ML IV SCH (05:18)
[2018-11-01 05:59] LABS: Absolute Lymphocytes (CBC) 2.8 K/uL (0.7-4.9); Absolute Monocytes 0.6 K/uL (0.1-1.3); Absolute Neutrophil 4.1 K/uL (1.8-8.0); Basophils % 0.6 % (0-1.3); Eosinophils % 2.6 % (0-4.4); Hematocrit 34.5 % (39.6-49.0); Lymphocytes % 36.2 % (15.3-44.8); MPV 9.8 fL (7.6-11.3); RBC Red Blood Cell Count 3.78 M/uL (4.33-5.43)
[2018-11-01] MEDS ORDERED: LEVOTHYROXINE SOD 0.05 MG TABLET PO SCH (06:00)
[2018-11-01 06:06] LABS: ALT/SGPT 50 U/L (12-78); AST/SGOT 29 U/L (15-37); Albumin 2.3 g/dL (3.4-5.0); Alkaline Phosphatase 87 U/L (45-117); BUN Blood Urea Nitrogen 20 mg/dL (7-18); Bicarbonate 30 mmol/L (21-32); Bilirubin Total 0.6 mg/dL (0.2-1.0); Glucose Level 95 mg/dL (74-106); Potassium 3.2 mmol/L (3.5-5.1); Protein, Total 6.1 g/dL (6.4-8.2); Sodium Level 142 mmol/L (136-145)
[2018-11-01] MEDS: INSULIN -REGULAR HUMAN 50 UNIT/0.5 ML ML SQ SCH ×2 (07:30→11:30)
[2018-11-01] MEDS: CEFTRIAXONE/SWI 1gm 1 GM/10 ML SYR IVP SCH (08:43)
[2018-11-01] MEDS ORDERED: ASPIRIN 81 MG CHEWABLE TABLET PO SCH (09:00)
[2018-11-01] MEDS ORDERED: SERTRALINE HCL 50 MG TAB PO SCH (09:00)
[2018-11-01] MEDS ORDERED: TAMSULOSIN 0.4 MG SR CAP PO SCH (09:00)
[2018-11-01] MEDS ORDERED: HOME MED 1 EA UNK (Losartan/Hydrochlorothiazide [Losartan-Hctz 100-12.5 Mg Tab] 1 EACH) PO SCH (09:00)
--- NOTE | 2018-11-01 10:15 | RAD REPORT ---
EXAM DESCRIPTION: US - Urinary Bladder - 10/31/2018 6:10 pm CLINICAL HISTORY: JASON/ CKD. Flank pain, renal failure COMPARISON: Urinary Bladder dated 10/31/2018 FINDINGS: Bilateral renal sonography was performed with urinary bladder ultrasound with PVR measurem ent. Both kidneys are normal in size, shape and echotexture. The right kidney measures 10.1 x 5.4 x 5.0 cm . No hydronephrosis, focal mass or perinephric fluid. The left kidney measures 9.3 x 5.2 x 4.0 cm . No hydronephrosis, focal mass or perinephric fluid. No urinary bladder mass or ureterocele present. Postvoid bladder volume is 55 mL. IMPRESSION: Unremarkable renal sonogram. Mild postvoid bladder residual 55 mL.
[2018-11-01 12:36] VITALS: BP 123/62; TEMP 97.9
--- NOTE | 2018-11-01 20:14 | P.PN ---
Date of Service: 10/31/18 Vital Signs Temp Pulse Resp BP Pulse Ox 97.9 F 71 18 123/62 90 L 11/01/18 12:00 11/01/18 12:00 11/01/18 12:00 11/01/18 12:00 11/01/18 12:00 Microbiology Results 10/30/18 13:43 Catheterized Urine [place] Count - Final >100,000 CFU/ML. 10/30/18 13:43 Catheterized Urine - Final Proteus Mirabilis Assessment/ Plan: Nephrology. Doing better today. CPS stable without CP or SOB. No acute events overnight. Vitals, medications, blood work and imaging reviewed in the chart. General: In no apparent distress, Cooperative HEENT: Atraumatic, Normocephalic Neck: Supple Respiratory: Clear to auscultation bilaterally, Normal air movement Cardiovascular: No edema, Regular rate/rhythm Gastrointestinal: Hypoactive, Soft and benign, Non-distended Musculoskeletal: No clubbing, No contractures Integumentary: No rashes, No cyanosis Neurological: Abnormal affect Imagings Data: EXAM DESCRIPTION: US - Renal Ultrasound-Complete - 10/31/2018 6:09 pm CLINICAL HISTORY: JASON/ CKD. Flank pain, renal failure COMPARISON: Urinary Bladder dated 10/31/2018 FINDINGS: Bilateral renal sonography was performed with urinary bladder ultrasound with PVR measurement. Both kidneys are normal in size, shape and echotexture. The right kidney measures 10.1 x 5.4 x 5.0 cm. No hydronephrosis, focal mass or perinephric fluid. The left kidney measures 9.3 x 5.2 x 4.0 cm. No hydronephrosis, focal mass or perinephric fluid. No urinary bladder mass or ureterocele present. Postvoid bladder volume is 55 mL. IMPRESSION: Unremarkable renal sonogram. Mild postvoid bladder residual 55 mL. EXAM DESCRIPTION: RAD - Chest Single View - 10/30/2018 2:22 pm CLINICAL HISTORY: AMS Chest pain. COMPARISON: No comparisons FINDINGS: Portable technique limits examination quality. The lungs are grossly clear. The heart is normal in size. No displaced fractures. IMPRESSION: No acute intrathoracic process suspected. Conclusions/Impression: A/ JASON like due to hypovolemia. Dehydration. Hypernatremia. Hypokalemia. HypoPO4. CKD III with proteinuria. DM II with CKD. HTN with CKD. Anemia in chronic illness. BPH with LUTS. Moderate protein calorie malnutrition. Sepsis. Acute proteus cystitis. P/ Continue current POC and Medications. Continue IVF. Replete lytes as ordered. Continue abx for sepsis/ cystitis. Encourage nutrition and hydration. No NSAIDS. AM labs. Daily weight.
--- NOTE | 2018-11-02 04:46 | DS ---
Date of Discharge: 11/01/2018 Post Framer: Dr. Mcconnell with Nephrology. Admitting Diagnoses: 1.Sepsis with hypotension. 2.Acute toxic encephalopathy. 3.UTI, acute cystitis without hematuria. 4.Diabetes mellitus type 2 without long-term use of insulin with hyperglycemia. 5.Mild mental retardation. 6.Dementia without behavioral disturbance. Discharge Diagnoses: 1.Acute toxic encephalopathy, resolved, secondary to UTI. 2.Sepsis associated with hypotension, resolved, secondary to UTI. 3.Acute cystitis without hematuria secondary to Proteus, treated with IV antibiotics. 4.Diabetes mellitus type 2 without long-term use of insulin with hyperglycemia, stable. 5.Mild mental retardation. 6.Dementia, Alzheimer's type, without behavioral disturbance. 7.Hypokalemia. Hospital Course: The patient is a 67-year-old male, who is dependent on his sister due to his mild M R, dementia, comes in due to confusion, found to be septic due to UTI. The patient was started on IV antibiotics. His white count improved. His blood pressure also improved with fluid resuscitation. He did have end-organ damage with elevated creatinine at 2.5. His kidney function improved. Dr. Moe faye with Nephrology was consulted. His urine cultures grew out Proteus, which was essentially pans ensitive. Renal ultrasound and bladder ultrasound were done, which did not show any significant messer ges. Head CT scan was also done along with cervical spine CT. There were no acute findings. He rocha s have some moderate lower cervical spondylosis. The patient was then doing well, able to ambulate w ithout difficulty. Family was not interested in nursing facility placement, did want home health, wh ich was set up through social work. The patient was then discharged home in a stable condition with home health. Activity: As tolerated. Medications: As per medication reconciliation list. Followup: Follow up with primary care physician in 2-3 days. Return to ER for worsening condition. Diet: Diabetic. Physical Examination: General: Awake, alert, oriented, no acute distress. CV: S1, S2. No murmurs. Respiratory: Moving air well bilaterally. No wheezing. Abdomen: Soft, nontender, nondistended. Positive bowel sounds. Extremities: No clubbing, cyanosis, edema. Neuro: Nonfocal. Total time spent discharging the patient was 37 minutes. /ANTOINETTE Voice ID: [id number] Report ID: [id number]
[2018-11-03 04:22] LABS: Immunoglobulin A 222 mg/dL (81-463); Immunoglobulin G 883 mg/dL (694-1618); Immunoglobulin M 34 mg/dL (48-271)
[2018-11-04 23:12] LABS: Albumin, (SPE) 2.7 g/dL (3.8-4.8); Alpha-1-Globulins 0.5 g/dL (0.2-0.3); Gamma Globulins 0.7 g/dL (0.8-1.7); INTERPRETATION REPORT
--- NOTE | 2018-11-05 11:15 | EKG ---
Test Date: 2018-10-30 Test Time: 13:49:35 Police Officer Booking: NILO MEASUREMENT RESULTS: Intervals: Rate: 92 RI: 124 QRSD: 86 QT: 352 QTc: 435 [place]: P: 60 RI: 124 QRS: 13 T: 15 INTERPRETIVE STATEMENTS: Sinus rhythm with marked sinus arrhythmia Otherwise normal ECG Compared to ECG 12/12/2012 14:59:47 No significant changes Electronically Signed On 10-30-18 16:58:57 CDT by Royla Lynch
== END 2018-11-01 14:34 | disposition home health service (06) | DRG 871 ==
LOC: ER 12:26 → ERHOLD 15:33 → 4TH 16:54
PROVIDERS: ADMIT Family Medicine; ATTEND Internal Medicine
DX: A41.9 Sepsis, unspecified organism (principal); G92 Toxic encephalopathy; N30.00 Acute cystitis without hematuria; N17.9 Acute kidney failure, unspecified; E44.0 Moderate protein-calorie malnutrition; R65.20 Severe sepsis without septic shock; B96.4 Proteus (mirabilis) (morganii) as the cause of diseases classified elsewhere; E11.65 Type 2 diabetes mellitus with hyperglycemia; F70 Mild intellectual disabilities; G30.9 Alzheimer's disease, unspecified; F02.80 Dementia in other diseases classified elsewhere, unspecified severity, without behavioral disturbance, psychotic disturbance, mood disturbance, and anxiety; E87.6 Hypokalemia; Z68.21 Body mass index [BMI] 21.0-21.9, adult
CPT/HCPCS: 36415; 51702; 70450; 71045; 72125; 76770; 76857; 80048; 80053; 81001; 81003; 81015; 82043; 82550; 82570; 82784; 82962; 83735; 84100; 84165; 84300; 84550; 85025; 86038; 86160; 86335; 87077; 87086; 87088; 87186; 93005; 96365; 97163; 99285; J0696; J7030

== ENCOUNTER 2020-12-29 13:42 | Emergency (ER) | payer OTHER ==
--- OUTSIDE RECORDS SUMMARY | 2020-12-29 13:44 | XMS REPORT | Continuity of Care Document ---
:1950 Author Organization [facility] t Address [address] [place] [address] Dr. Medrano [address] [place] [id number] Care Team Providers Name Role Phone Usha Castillo Attending Clinician [phone] Problems This patient has no known problems. Allergies, Adverse Reactions, Alerts This patient has no known allergies or adverse reactions. Medications This patient has no known medications. Procedures This patient has no known procedures. Encounters Start End Encounter Admission Attending Care Care Encounter Source Date/Time Date/Time Type Type Clinicians Facility Department ID 2020-10-21 2020-10-21 Outpatient [facility] [id number] 00:00:00 00:00:00 , Cherry [id number] Usha [id number] Results This patient has no known results.
--- NOTE | 2020-12-29 15:03 | RAD REPORT ---
EXAM DESCRIPTION: CT - CTHCSPWOC - 12/29/2020 2:35 pm CLINICAL HISTORY: fall from wheelchair, head and neck injury COMPARISON: Head C Spine Mpr Wo Con dated 10/30/2018 TECHNIQUE: Axial 5 mm thick images of the head were obtained. Axial 2 mm thick images of the cervic al spine were obtained with sagittal and coronal reconstruction images generated and reviewed. All CT scans are performed using dose optimization technique as appropriate and may include automated exposure control or mA/KV adjustment according to patient size. FINDINGS: No intracranial hemorrhage, mass, edema or acute intracranial finding. No suspicion for ac [place] infarction. Moderate severity atrophy is present. Ventriculomegaly is present and does appear to be out of proportion to the amount of volume loss. However, ventricular size is stable. Note transepe ndymal migration of CSF suspected. No cortical edema or sulcal effacement. Mastoid air cells and para nasal sinuses are clear. No globe or orbit abnormality seen. No measurable scalp hematoma identifiabl e. Cervical bodies are normal in height. No fracture or acute cervical spine finding identifiable. Heigh t loss in the C6 body is similar to comparison. Retrolisthesis of C5 on C6 also similar to comparison . Disc space narrowing present at C5-6 and C6-7. Central canal detail is inherently limited. Degenerative changes are present at the occipital condyle articulation with the lateral masses of C1. This is similar to comparison. The patient has a type I atlantoaxial rotary subluxation. Right later al mass of C1 is rotated 7 mm posteriorly. Left lateral mass C1 is rotated anteriorly 6 mm relative t o the body of C2. This is new from the 2019 study. This can be seen in the trauma setting. This may b e due to muscle spasm. C1 ring is intact. There is normal positioning of the dens relative to the ant erior arch C1. No paraspinal mass or hematoma. IMPRESSION: No hemorrhage, edema or acute intracranial finding. Patient has ventriculomegaly is maritza lar to 2019. No fracture of the cervical spine. The patient has a type I atlanto axial rotary subluxation. C1 is r otated relative to C2 as detailed above. This is usually muscle spasm affect from trauma. Remainder the cervical spine shows degenerative change as detailed with no acute finding or significa nt change.
--- NOTE | 2020-12-29 15:19 | RAD REPORT ---
EXAM DESCRIPTION: RAD - Chest Single View - 12/29/2020 3:12 pm CLINICAL HISTORY: fall from wheelchair COMPARISON: October 2018 TECHNIQUE: AP portable chest image was obtained 12/29/2020 3:12 pm . FINDINGS: Lungs are clear. Heart and vasculature are normal. No measurable pleural effusion and no p neumothorax. No acute bony abnormality seen. No acute aortic findings suspected. IMPRESSION: No acute cardiopulmonary process.
--- NOTE | 2020-12-29 15:20 | RAD REPORT ---
EXAM DESCRIPTION: RAD - Pelvis - 12/29/2020 3:13 pm CLINICAL HISTORY: fall from wheelchair COMPARISON: No comparisons TECHNIQUE: AP imaging of the pelvis was obtained. FINDINGS: Pelvis is rotated which limits full evaluation. No fracture is identified. No dislocation of either femoral head. Lower lumbar degenerative change present but not fully assessed. SI joint deg enerative changes are seen. No suspicious soft tissue finding. IMPRESSION: Limited exam showing no fracture or acute finding.
--- NOTE | 2020-12-29 16:09 | EDPHYS ---
Physician Documentation [facility] Name: José Manuel Vega Age: 70 yrs Sex: Male : 1950 Arrival Date: 12/29/2020 Time: 13:45 Bed 5 Private MD: ED Physician Rich Hardy HPI: 12/29 14:15 This 70 yrs old Male presents to ER via EMS with complaints of Fall Injury. cp 14:15 Details of fall: The patient fell from seated position, out of a wheelchair. Onset: The cp symptoms/episode began/occurred just prior to arrival. 14:15 Associated injuries: The patient sustained no obvious injuries. EMS reports patient was cp seen by therapist at group home and left unattended for brief period, when nursing staff checked on patient he was found on ground conscious next to wheelchair. Historical: - Allergies: 13:45 No Known Allergies; aa5 - Home Meds: 13:45 aspirin 81 mg Oral chew once daily [Active]; levothyroxine 50 mcg tab once daily aa5 [Active]; losartan-hydrochlorothiazide 100-12.5 mg oral tab [Active]; metformin 500 mg oral tab once a day [Active]; sertraline 50 mg oral tab once daily [Active]; simvastatin 20 mg Oral tab at bedtime [Active]; tamsulosin 0.4 mg oral cp24 1 cap once daily [Active]; - PMHx: 13:45 Alzheimers; Diabetes - NIDDM; Hyperlipidemia; Hypertension; Thyroid problem; aa5 - PSHx: 13:45 arm sx; aa5 - Immunization history:: Adult Immunizations unknown. - Immunization history: Last tetanus immunization: unknown. - Social history:: Smoking status: unknown. ROS: 14:20 Constitutional: Negative for fever. cp 14:20 Unable to obtain ROS due to baseline dementia. Exam: 14:30 Head/Face: Normocephalic, atraumatic. cp 14:30 Constitutional: The patient appears in no acute distress, alert, awake, non-diaphoretic, well developed, frail. 14:30 Eyes: Pupils: equal, round, and reactive to light and accomodation, Sclera: no appreciated abnormality, Lids and lashes: appear normal, bilaterally. 14:30 ENT: External ear(s): are unremarkable, Nose: is normal, Mouth: Lips: moist, Oral mucosa: moist, Posterior pharynx: Airway: no evidence of obstruction, patent. 14:30 Neck: C-spine: vertebral tenderness, is not appreciated, crepitus, is not appreciated, ROM/movement: limited range of motion, is not appreciated. 14:30 Chest/axilla: Inspection: normal, Palpation: is normal, no crepitus, no tenderness. 14:30 Cardiovascular: Rate: normal, Rhythm: regular, Edema: is not appreciated, JVD: is not appreciated. 14:30 Respiratory: the patient does not display signs of respiratory distress, Respirations: normal, no use of accessory muscles, no retractions, labored breathing, is not present, Breath sounds: are clear throughout, no decreased breath sounds, no stridor, no wheezing. 14:30 Abdomen/GI: Inspection: abdomen appears normal, Palpation: abdomen is soft and non-tender, in all quadrants. 14:30 Back: vertebral tenderness, is not appreciated. 14:30 Musculoskeletal/extremity: Exam is negative for decreased range of motion, deformity, injury. 14:30 Skin: injury, is not appreciated. 14:30 Neuro: Orientation: no acute changes, per EMS, Mentation: no acute changes, per EMS. Vital Signs: 13:45 BP 112 / 77; Pulse 62; Resp 18 S; Temp 97.2(TE); Pulse Ox 100% on R/A; aa5 15:40 BP 114 / 66; Pulse 61; Resp 15 S; Pulse Ox 92% on R/A; ca1 16:17 BP 109 / 65; Pulse 53; Resp 16 S; Pulse Ox 100% on R/A; ca1 17:31 BP 108 / 55; Pulse 61; Resp 15 S; Pulse Ox 100% on R/A; ca1 18:23 BP 112 / 59; Pulse 62; Resp 16 S; Pulse Ox 98% on R/A; ca1 [place] Coma Score: 13:56 Eye Response: spontaneous(4). Verbal Response: confused(4). Motor Response: obeys ca1 commands(6). Total: 14. Trauma Score (Adult): 13:56 Eye Response: spontaneous(1); Verbal Response: confused(1); Motor Response: obeys ca1 commands(2); Systolic BP: > 89 mm Hg(4); Respiratory Rate: 10 to 29 per min(4); Mandeep Score: 14; Trauma Score: 12 MDM: 14:03 Patient medically screened. 14:30 Differential diagnosis: closed head injury, contusion, fracture, laceration, multiple cp trauma. 16:08 Data reviewed: vital signs, nurses notes, radiologic studies, CT scan, plain films, and cp as a result, I will discharge patient. 16:08 ED course: VSS. Radiology studies negative for acute trauma. Will discharge back to care of group home. 12/29 14:03 Order name: CT Head C Spine; Complete Time: 15:36 12/29 15:36 Interpretation: Reviewed report. 12/29 14:03 Order name: XRAY Chest (1 view); Complete Time: 15:36 12/29 15:36 Interpretation: Report reviewed. 12/29 14:03 Order name: XRAY Pelvis; Complete Time: 15:36 12/29 15:37 Interpretation: Report reviewed. Administered Medications: No medications were administered Disposition: 16:30 Chart complete. Disposition: 12/29/20 16:09 Discharged to Home. Impression: Fall from non-moving wheelchair. - Condition is Stable. - Discharge Instructions: Fall Prevention in the Home. - SBAR form, Medication Reconciliation Form, Thank You Letter, Antibiotic Education, Prescription Opioid Use form. - Follow up: Emergency Department; When: As needed; Reason: Worsening of condition. - Problem is new. - Symptoms have improved. Signatures: Dispatcher [employer] EDNhi Melo RN RN aa5 Vinny Harper PA PA cp Shea Stephens RN RN ca1 Corrections: (The following items were deleted from the chart) 18:25 16:09 12/29/2020 16:09 Discharged to Home. Impression: Fall from non-moving wheelchair. ca1 Condition is Stable. Forms are Medication Reconciliation Form, Thank You Letter, Antibiotic Education, Prescription Opioid Use. Follow up: Emergency Department; When: As needed; Reason: Worsening of condition. Problem is new. Symptoms have improved. cp
--- NOTE | 2020-12-29 16:09 | ER ---
Nurse's Notes [facility] Name: José Manuel Vega Age: 70 yrs Sex: Male : 1950 Arrival Date: 12/29/2020 Time: 13:45 Bed 5 Private MD: Diagnosis: Fall from non-moving wheelchair Presentation: 12/29 13:45 Chief complaint: EMS states: found on floor by half-way staff from sitting in aa5 wheelchair. No injuries noted by EMS. 13:45 Coronavirus screen: At this time, the client does not indicate any symptoms associated aa5 with coronavirus-19. Ebola Screen: Patient negative for fever greater than or equal to 101.5 degrees Fahrenheit, and additional compatible Ebola Virus Disease symptoms. Initial Sepsis Screen: Does the patient meet any 2 criteria? No. Patient's initial sepsis screen is negative. Does the patient have a suspected source of infection? No. Patient's initial sepsis screen is negative. Risk Assessment: Do you want to hurt yourself or someone else? Unable to obtain. Onset of symptoms was December 29, 2020. 13:45 Acuity: GABY 4 aa5 13:45 Method Of Arrival: EMS: [facility] aa5 13:56 Care prior to arrival: None. Mechanism of Injury: No Mechanism of Injury. Trauma event ca1 details: Injury occurred in the [facility], Injury occurred: in an institution. Injury occurred: December 29, 2020 Injury occurred at: 12:15. Trauma Activation: Not Applicable Physician: ED Physician; Name: ; Notified At: ; Arrived At: Physician: General Surgeon; Name: ; Notified At: ; Arrived At: Physician: Radiology; Name: ; Notified At: ; Arrived At: Physician: Respiratory; Name: ; Notified At: ; Arrived At: Physician: Lab; Name: ; Notified At: ; Arrived At: Historical: - Allergies: 13:45 No Known Allergies; aa5 - Home Meds: 13:45 aspirin 81 mg Oral chew once daily [Active]; levothyroxine 50 mcg tab once daily aa5 [Active]; losartan-hydrochlorothiazide 100-12.5 mg oral tab [Active]; metformin 500 mg oral tab once a day [Active]; sertraline 50 mg oral tab once daily [Active]; simvastatin 20 mg Oral tab at bedtime [Active]; tamsulosin 0.4 mg oral cp24 1 cap once daily [Active]; - PMHx: 13:45 Alzheimers; Diabetes - NIDDM; Hyperlipidemia; Hypertension; Thyroid problem; aa5 - PSHx: 13:45 arm sx; aa5 - Immunization history:: Adult Immunizations unknown. - Immunization history: Last tetanus immunization: unknown. - Social history:: Smoking status: unknown. Screenin:56 Abuse screen: Denies threats or abuse. Denies injuries from another. Tuberculosis ca1 screening: No symptoms or risk factors identified. 13:58 Nutritional screening: No deficits noted. Fall Risk Fall in past 12 months (25 points). ca1 Secondary diagnosis (15 points) dementia, IV access (20 points). Ambulatory Aid- None/Bed Rest/Nurse Assist (0 pts). Gait- Impaired (20 pts.). Total Holder Fall Scale indicates High Risk Score (45 or more points). Fall prevention measures have been instituted. Side Rails Up X 2 Frequent Obs/Assessments Occuring As available patient and family educated on Fall Prevention Program and Strategies. Primary Survey: 13:56 NO uncontrolled hemorrhage observed. A: The patient is alert. Airway: patent. ca1 Breathing/Chest: Respiratory pattern: regular, Respiratory effort: spontaneous, unlabored, Chest inspection: symmetrical rise and fall of the chest. Circulation: Heart tones present. Skin color: pink, Skin temperature: warm, dry. Disability Alert. Exposure/Environment: All clothing and personal items were removed. Forensic evidence collection is not deemed to be indicated at this time. Items placed in patient belonging bag. Assessment: 13:58 General: Appears in no apparent distress. comfortable, Behavior is calm, cooperative. ca1 Pain: Unable to use pain scale. Does not appear to understand pain scale. Neuro: Level of Consciousness is awake, alert, Oriented to none. Cardiovascular: Heart tones S1 S2 present Capillary refill < 3 seconds Patient's skin is warm and dry. Respiratory: Airway is patent Respiratory effort is even, unlabored, Respiratory pattern is regular, symmetrical, Breath sounds are clear bilaterally. GI: Abdomen is flat, non-distended, Bowel sounds present X 4 quads. Abd is soft and non tender X 4 quads. : No signs and/or symptoms were reported regarding the genitourinary system. EENT: No signs and/or symptoms were reported regarding the EENT system. Derm: Skin is healthy with good turgor, Skin is pink, warm \T\ dry. Musculoskeletal: Circulation, motion, and sensation intact. Capillary refill < 3 seconds. 15:36 Reassessment: Patient appears in no apparent distress at this time. No changes from ca1 previously documented assessment. Patient and/or family updated on plan of care and expected duration. Pain level reassessed. 16:17 Reassessment: Patient appears in no apparent distress at this time. No changes from ca1 previously documented assessment. Patient and/or family updated on plan of care and expected duration. Pain level reassessed. 17:31 Reassessment: Patient appears in no apparent distress at this time. No changes from ca1 previously documented assessment. Patient and/or family updated on plan of care and expected duration. Pain level reassessed. Called report to Amber at [facility]. 18:23 Reassessment: Patient appears in no apparent distress at this time. No changes from ca1 previously documented assessment. Patient and/or family updated on plan of care and expected duration. Pain level reassessed. Vital Signs: 13:45 BP 112 / 77; Pulse 62; Resp 18 S; Temp 97.2(TE); Pulse Ox 100% on R/A; aa5 15:40 BP 114 / 66; Pulse 61; Resp 15 S; Pulse Ox 92% on R/A; ca1 16:17 BP 109 / 65; Pulse 53; Resp 16 S; Pulse Ox 100% on R/A; ca1 17:31 BP 108 / 55; Pulse 61; Resp 15 S; Pulse Ox 100% on R/A; ca1 18:23 BP 112 / 59; Pulse 62; Resp 16 S; Pulse Ox 98% on R/A; ca1 Mandeep Coma Score: 13:56 Eye Response: spontaneous(4). Verbal Response: confused(4). Motor Response: obeys ca1 commands(6). Total: 14. Trauma Score (Adult): 13:56 Eye Response: spontaneous(1); Verbal Response: confused(1); Motor Response: obeys ca1 commands(2); Systolic BP: > 89 mm Hg(4); Respiratory Rate: 10 to 29 per min(4); Mandeep Score: 14; Trauma Score: 12 ED Course: 13:45 Patient arrived in ED. aa5 13:45 Arm band placed on Patient placed in an exam room, on a stretcher. aa5 13:46 Shea Stephens, RN is Primary Nurse. ca1 13:53 Triage completed. aa5 13:56 Patient has correct armband on for positive identification. Placed in gown. Bed in low ca1 position. Call light in reach. Side rails up X2. 13:56 Patient maintains SpO2 saturation greater than 95% on room air. ca1 13:58 hot frame tender on. Pulse ox on. NIBP on. Warm blanket given. ca1 13:59 Vinny Harper PA is PHCP. cp 13:59 Rich Hardy MD is Attending Physician. cp 14:00 Thermoregulation: warm blanket given to patient. ca1 14:34 CT Head C Spine In Process Unspecified. EDMS 15:09 XRAY Chest (1 view) In Process Unspecified. EDMS 15:09 XRAY Pelvis In Process Unspecified. EDMS 16:18 No provider procedures requiring assistance completed. Patient did not have IV access ca1 during this emergency room visit. Administered Medications: No medications were administered Intake: 13:56 PO: 0ml; IV: 0ml; Tubes: 0ml (); Total: 0ml. ca1 Output: 13:56 Urine: 0ml; Total: 0ml. ca1 Outcome: 16:09 Discharge ordered by MD. cp 18:24 Discharged to half-way. Report called to [facility] Transfer form completed. Valuables ca1 list done. 18:24 Condition: stable 18:24 Discharge instructions given to EMS. 18:25 Patient left the ED. ca1 Signatures: Dispatcher [employer] EDNY Nhi Zhou RN RN aa Vinny Harper PA PA cp Acob, Cheryl, RN RN ca1 Corrections: (The following items were deleted from the chart) 15:40 15:36 Reassessment: Patient appears in no apparent distress at this time. Patient ca1 and/or family updated on plan of care and expected duration. Pain level reassessed. Patient is alert, oriented x 3, equal unlabored respirations, skin warm/dry/pink. ca1 17:35 17:31 Reassessment: Patient appears in no apparent distress at this time. No changes ca1 from previously documented assessment. Patient and/or family updated on plan of care and expected duration. Pain level reassessed. ca1
[2020-12-29 18:32] VITALS: TEMP 97.2
[2020-12-29 18:37] VITALS: BP 112/59; O2SAT 98
== END 2020-12-29 18:25 | disposition home or self-care (01) ==
LOC: ER 13:42
DX: Z04.3 Encounter for examination and observation following other accident (principal); W05.0XXA Fall from non-moving wheelchair, initial encounter
CPT/HCPCS: 70450; 71045; 72125; 72170; 99285

== ENCOUNTER 2021-02-23 12:30 | Emergency (ER) | payer OTHER ==
--- OUTSIDE RECORDS SUMMARY | 2021-02-23 12:33 | XMS REPORT | Continuity of Care Document ---
:1950 Author Organization [facility] t Address [address] [place] [address] Dr. Medrano [address] [place] [id number] Care Team Providers Name Role Phone Usha Castillo Attending Clinician [phone] Problems This patient has no known problems. Allergies, Adverse Reactions, Alerts This patient has no known allergies or adverse reactions. Medications This patient has no known medications. Procedures This patient has no known procedures. Encounters Start End Encounter Admission Attending Care Care Encounter Source Date/Time Date/Time Type Type Clinicians Facility Department ID 2020-10-21 2020-10-21 Outpatient Anna [facility] [id number] 00:00:00 00:00:00 , [place] [id number] Usha [id number] Results This patient has no known results.
--- NOTE | 2021-02-23 13:26 | RAD REPORT ---
EXAM DESCRIPTION: CT - CTHCSPWOC - 02/23/2021 1:03 pm CLINICAL HISTORY: Trauma, head and neck injury. fall from bed COMPARISON: Head C Spine Mpr Wo Con dated 12/29/2020; Head C Spine Mpr Wo Con dated 10/30/2018 12/29/2020 TECHNIQUE: Axial 5 mm thick images of the head were obtained. Axial 2 mm thick images of the cervical spine were obtained with sagittal and coronal reconstruction images generated and reviewed. All CT scans are performed using dose optimization technique as appropriate and may include automated exposure control or mA/KV adjustment according to patient size. FINDINGS: CT HEAD WITHOUT CONTRAST: No acute hemorrhage, hydrocephalus or extra-axial collection is identified.No areas of brain edema or midline shift. Age advanced cerebral atrophy with ex vacuo ventricular dilatation. Opacified right maxillary sinus.The calvarium is intact. CT CERVICAL SPINE WITHOUT CONTRAST: No fracture or traumatic malalignment cervical spine. Retrolisthesis of approximately 2 millimeters o f C5 on C6 likely secondary to underlying degenerative changes. Trace retrolisthesis of C6 and C7 per Varying degrees of neural foraminal narrowing noted.No prevertebral soft tissues swelling is identif ied. The alignment of C1 and C2 though slightly rotated has improved since 12/29/2020. IMPRESSION: No acute intracranial or cervical spine findings.
--- NOTE | 2021-02-23 13:51 | RAD REPORT ---
EXAM DESCRIPTION: RAD - Pelvis - 02/23/2021 1:31 pm CLINICAL HISTORY: fall out of bed COMPARISON: Pelvis dated 12/29/2020; Chest Single View dated 02/23/2021 FINDINGS: No pelvic fractures identified. Moderate stool is present within the rectum. Peripheral va scular calcifications are noted. The femoral heads are smooth in contour and overlie their respective acetabula. IMPRESSION: No pelvic fracture identified.
--- NOTE | 2021-02-23 13:51 | RAD REPORT ---
EXAM DESCRIPTION: RAD - Chest Single View - 02/23/2021 1:31 pm CLINICAL HISTORY: fall COMPARISON: Chest Single View dated 12/29/2020; Chest Single View dated 10/30/2018 FINDINGS: No evidence of edema or pneumonia. The heart size is within normal limits.No acute osseous abnormality. No significant pleural effusions or pneumothorax. IMPRESSION: No acute cardiopulmonary disease.
--- NOTE | 2021-02-23 13:55 | ER ---
Nurse's Notes [facility] Name: José Manuel Vega Age: 70 yrs Sex: Male : 1950 Arrival Date: 02/23/2021 Time: 12:40 Bed 30 Private MD: Diagnosis: Unspecified injury of head, initial encounter Presentation: 02/23 12:45 Chief complaint: EMS states: Unwitness fall from bed, about two feet. Pt is from [address]; staff stated no noted LOC, no change in mental status. Pt is non verbal. Coronavirus screen: Client denies travel out of the [place] in the last 14 days. Ebola Screen: Patient negative for fever greater than or equal to 101.5 degrees Fahrenheit, and additional compatible Ebola Virus Disease symptoms. Initial Sepsis Screen: Does the patient meet any 2 criteria? No. Patient's initial sepsis screen is negative. Does the patient have a suspected source of infection? No. Patient's initial sepsis screen is negative. Risk Assessment: Do you want to hurt yourself or someone else? Patient reports no desire to harm self or others. Onset of symptoms was February 23, 2021. 12:45 Method Of Arrival: EMS: [place] [id number] 12:45 Acuity: GABY 3 vg1 Triage Assessment: 12:47 General: Appears in no apparent distress. comfortable, Behavior is calm, cooperative. vg1 Pain: Denies pain. EENT: No signs and/or symptoms were reported regarding the EENT system. Neuro: Level of Consciousness is awake, alert, obeys commands, Oriented to person, [facility] stated Pt is non verbal. Upon asking question to patient, patient was able to state 'yes' or 'no'. Asked pt if he was 'José Manuel Vega' and pt replied 'yes'. Asked pt if he knew where he was and pt did not respond to answer.. Cardiovascular: Patient's skin is warm and dry. Respiratory: Airway is patent Respiratory effort is even, unlabored. GI: Abdomen is flat, non-distended, Abd is soft and non tender X 4 quads. : Pt in brief. Derm: Skin is intact, Skin is pink, warm \T\ dry. Pt has a few scratches to top right side of forehead. Musculoskeletal: Capillary refill < 3 seconds, in bilateral fingers. Historical: - Allergies: 12:47 No Known Allergies; vg1 - Home Meds: 12:47 aspirin 81 mg Oral chew once daily [Active]; Flomax Oral [Active]; levothyroxine 50 mcg vg1 tab once daily [Active]; losartan-hydrochlorothiazide 100-12.5 mg Oral tab [Active]; metformin 500 mg Oral tab once a day [Active]; sertraline 50 mg Oral tab once daily [Active]; simvastatin 20 mg Oral tab at bedtime [Active]; tamsulosin 0.4 mg Oral cp24 1 cap once daily [Active]; Zoloft Oral [Active]; - PMHx: 12:47 Alzheimers; Diabetes - NIDDM; Hyperlipidemia; Hypertension; Thyroid problem; vg1 - Immunization history:: Adult Immunizations up to date. - Social history:: Smoking status: Patient denies any tobacco usage or history of. - Family history:: not pertinent. - Hospitalizations: : No recent hospitalization is reported. - History obtained from: EMS. Screenin:01 Abuse screen: Denies threats or abuse. Nutritional screening: No deficits noted. vg1 Tuberculosis screening: No symptoms or risk factors identified. Fall Risk Fall in past 12 months (25 points). No secondary diagnosis (0 pts). No IV (0 pts). Ambulatory Aid- Crutches/Cane/Walker (15 pts). Gait- Normal/Bed Rest/Wheelchair (0 pts) Mental Status- Overestimates/Forgets Limitations (15 pts.). Total Holder Fall Scale indicates High Risk Score (45 or more points). Fall prevention measures have been instituted. Side Rails Up X 2 Placed Close to Nursing Station. Assessment: 13:01 Reassessment: SEE TRIAGE. vg1 13:15 Reassessment: Pt back from CT. Asked pt if was in any pain, pt shook head 'yes'. vg1 Palpated TAYLOR hips, asked pt if that was the pain, pt shook head 'no'. Palpated ABD, asked pt if that was where the pain was patient shook head 'yes'. Pt did not grimace upon ABD palpation. Provider notified. 13:20 Reassessment: Patient appears in no apparent distress at this time. Patient and/or vg1 family updated on plan of care and expected duration. Pain level reassessed. Pt is awake and alert. 14:32 Reassessment: Called [facility] to let them know that patient is up for vg1 discharge and to plan for patients transportation back to their facility. Spoke with L[facility]a and stated would call back with ETA. 15:26 Reassessment: Patient appears in no apparent distress at this time. Patient and/or vg1 family updated on plan of care and expected duration. Pain level reassessed. ETA from [facility] is approximately 45 minutes. pt is resting with eyes closed. Vital Signs: 12:45 BP 110 / 80; Pulse 65; Resp 16; Temp 98.6(O); Pulse Ox 98% ; Weight 53.98 kg; Height 72 vg1 in. (182.88 cm); Pain 0/10; 12:45 Body Mass Index 16.14 (53.98 kg, 182.88 cm) vg1 ED Course: 12:40 Patient arrived in ED. vg1 12:42 Ham Pérez MD is Attending Physician. rn 12:47 Triage completed. vg1 13:01 Patient has correct armband on for positive identification. Bed in low position. Call vg1 light in reach. Side rails up X2. 13:01 No provider procedures requiring assistance completed. Patient did not have IV access vg1 during this emergency room visit. 13:03 CT Head C Spine In Process Unspecified. EDMS 13:15 Xena Morgan, RN is Primary Nurse. vg1 13:31 XRAY Chest (1 view) In Process Unspecified. EDMS 13:31 XRAY Pelvis In Process Unspecified. EDMS Administered Medications: No medications were administered Outcome: 13:54 Discharge ordered by . rn 15:34 Patient left the ED. vg1 Signatures: Dispatcher [employer] EDMS Ham Pérez MD MD rn Garcia, Victoria, RN RN vg1
--- NOTE | 2021-02-23 13:55 | EDPHYS ---
Physician Documentation [facility] Name: José Manuel Vega Age: 70 yrs Sex: Male : 1950 Arrival Date: 02/23/2021 Time: 12:40 Bed 30 Private MD: ED Physician Ham Pérez HPI: 02/23 13:34 This 70 yrs old Male presents to ER via EMS with complaints of Fall Injury. rn 13:34 Details of fall: The patient fell from a supine position, out of bed. Onset: The rn symptoms/episode began/occurred just prior to arrival. Associated injuries: The patient sustained injury to the head. Severity of symptoms: At their worst the symptoms were mild, in the emergency department the symptoms are unchanged. It is unknown whether or not the patient has had similar symptoms in the past. The patient has not recently seen a physician. Sent from intermediate after unwitnessed fall from bed, found with abrasion to right scalp, otherwise at baseline neurologically. Per intermediate patient is nonverbal.. Historical: - Allergies: 12:47 No Known Allergies; vg1 - Home Meds: 12:47 aspirin 81 mg Oral chew once daily [Active]; Flomax Oral [Active]; levothyroxine 50 mcg vg1 tab once daily [Active]; losartan-hydrochlorothiazide 100-12.5 mg Oral tab [Active]; metformin 500 mg Oral tab once a day [Active]; sertraline 50 mg Oral tab once daily [Active]; simvastatin 20 mg Oral tab at bedtime [Active]; tamsulosin 0.4 mg Oral cp24 1 cap once daily [Active]; Zoloft Oral [Active]; - PMHx: 12:47 Alzheimers; Diabetes - NIDDM; Hyperlipidemia; Hypertension; Thyroid problem; vg1 - Immunization history:: Adult Immunizations up to date. - Social history:: Smoking status: Patient denies any tobacco usage or history of. - Family history:: not pertinent. - Hospitalizations: : No recent hospitalization is reported. - History obtained from: EMS. ROS: 13:34 Unable to obtain ROS due to Nonverbal patient. rn Exam: 13:34 Constitutional: This is a well developed, well nourished patient who is awake, alert, rn and in no acute distress. Head/Face: Linear abrasions to right scalp, no skull depression, no lacerations or active bleeding. Eyes: Periorbital areas with no swelling, redness, or edema. ENT: No intraoral trauma or bleeding. Neck: No cervical spine tenderness Chest/axilla: Normal chest wall appearance and motion. Nontender with no deformity. No lesions are appreciated. Cardiovascular: Regular rate and rhythm . No pulse deficits. Respiratory: No increased work of breathing, no retractions or nasal flaring. Abdomen/GI: Soft, non-tender Skin: Warm, dry, no lacerations MS/ Extremity: Pulses equal, no cyanosis. No grimacing or apparent pain with movement of all 4 extremities. No apparent pain in hips with passive range of motion in flexion. Neuro: Awake and alert, smiles, but nonverbal. Vital Signs: 12:45 BP 110 / 80; Pulse 65; Resp 16; Temp 98.6(O); Pulse Ox 98% ; Weight 53.98 kg; Height 72 vg1 in. (182.88 cm); Pain 0/10; 12:45 Body Mass Index 16.14 (53.98 kg, 182.88 cm) vg1 MDM: 12:42 Patient medically screened. rn 13:53 Differential diagnosis: abrasion, contusion. rn 13:54 Data reviewed: vital signs, nurses notes, radiologic studies, CT scan, and as a result, rn I will discharge patient. Counseling: I had a detailed discussion with the patient and/or guardian regarding: the historical points, exam findings, and any diagnostic results supporting the discharge/admit diagnosis, radiology results, the need for outpatient follow up, to return to the emergency department if symptoms worsen or persist or if there are any questions or concerns that arise at home. Special discussion: Based on the patient's history, exam and DX evaluation, there is no indication for emergent intervention or inpatient [place]. It is understood by the patient/guardian that if the SXs persist or worsen they need to return immediately for re-evaluation. I discussed with the patient/guardian in detail that at this point there is no indication for admission to the hospital. It is understood, however, that if the symptoms persist or worsen the patient needs to return immediately for re-evaluation. ED course: No acute findings on CT or plain films will DC back to intermediate. 02/23 12:43 Order name: CT Head C Spine; Complete Time: 13:52 rn 02/23 12:43 Order name: XRAY Chest (1 view); Complete Time: 13:52 rn 02/23 12:43 Order name: XRAY Pelvis; Complete Time: 13:52 rn Administered Medications: No medications were administered Disposition Summary: 02/23/21 13:54 Discharge Ordered Location: Home rn Problem: new rn Symptoms: have improved rn Condition: Stable rn Diagnosis - Unspecified injury of head, initial encounter rn Followup: rn - With: Private Physician - When: As needed - Reason: Recheck today's complaints, Re-evaluation by your physician Discharge Instructions: - Discharge Summary Sheet rn - Head Injury, Adult rn - Fall Prevention in the Home, Adult rn Forms: - Medication Reconciliation Form rn - Thank You Letter rn - Antibiotic furnace mechanic - Prescription Opioid Use rn Signatures: Dispatcher [employer] Ham Mark MD MD rn Garcia, Victoria, RN RN vg1
[2021-02-24 12:10] VITALS: BP 110/80; TEMP 98.6; O2SAT 98
== END 2021-02-23 15:34 | disposition home or self-care (01) ==
LOC: ER 12:30
DX: S00.01XA Abrasion of scalp, initial encounter (principal); W06.XXXA Fall from bed, initial encounter; Y92.122 Bedroom in nursing home as the place of occurrence of the external cause; I10 Essential (primary) hypertension; E11.9 Type 2 diabetes mellitus without complications; G30.9 Alzheimer's disease, unspecified; F02.80 Dementia in other diseases classified elsewhere, unspecified severity, without behavioral disturbance, psychotic disturbance, mood disturbance, and anxiety; Z79.82 Long term (current) use of aspirin
CPT/HCPCS: 70450; 71045; 72125; 72170; 99283